=== PATIENT | female | born 1995 | race Caucasian/White ===

== ENCOUNTER 2023-09-14 23:01 | Emergency (ER) | payer MEDICAID, OTHER ==
[~2023-09-14] VITALS: Ht 172.7 cm; Wt 59.1 kg
[~2023-09-14 23:01] MED LIST: ALBU18HF2 IH; ATOM18CA PO; CETI-1 PO; MONT-48 PO; NAPR-232 PO; NORG1TAB41 PO; ONDA8TAB6 PO
[2023-09-14] MEDS ORDERED: CLON1TAB2 PO (23:07)
[2023-09-14] MEDS ORDERED: LISD60CA PO (23:08)
[2023-09-14] MEDS ORDERED: DICL-343 PO (23:08)
[2023-09-14] MEDS ORDERED: [UNRECOGNIZED DRUG - CODE] PO (23:08)
[2023-09-14 23:17] VITALS: BP 124/68; PULSE 66; RESP 18; TEMP 98.4; O2SAT 99
== END 2023-09-14 23:19 | disposition home or self-care (01) ==
LOC: ER 23:02
DX: Z76.0 Encounter for issue of repeat prescription (principal); G93.5 Compression of brain; Z79.899 Other long term (current) drug therapy; K21.9 Gastro-esophageal reflux disease without esophagitis; Z88.0 Allergy status to penicillin; Z98.890 Other specified postprocedural states
CPT/HCPCS: 99283